=== PATIENT | female | born 1985 | race Caucasian/White ===

== ENCOUNTER 2016-10-27 22:17 | Emergency (ER) | payer BC ==
--- NOTE | 2016-10-27 23:23 | ED CLINICAL REPORT ---
Clinical Report - Physicians/Mid Levels [facility] [address] [place] [address] 10/27/2016 22:21 Patient: TENZIN MILLER Time Seen: 22:32. Arrived- By private vehicle. Historian- patient. HISTORY OF PRESENT ILLNESS The patient sustained a burn to the left upper extremity - left hand. Chief Complaint: BURN. The injury occurred just prior to arrival. The injury was due to hot oil. It occurred at home. The patient denies pain. REVIEW OF SYSTEMS No chills, fever, sweats, chest pain or cough. No difficulty breathing, pedal edema, palpitations, abdominal pain or constipation. No diarrhea, nausea, vomiting or urinary problems. All systems otherwise negative, except as recorded above. SOCIAL HISTORY Current every day light tobacco smoker (cigarette)- less than 1/2 a pack per day. Occasional alcohol use. No drug use. FAMILY HISTORY No significant family medical history. ADDITIONAL NOTES The nursing notes have been reviewed. PHYSICAL EXAM Vital Signs: 10/27/2016 22:29 BP: 179/102. HR: 110. RR: 16. O2 saturation: 100%. Temp: 98.4 F. Pain level now: 0/10. Have been reviewed. Appearance: Alert. No acute distress. Head: Head atraumatic. Eyes: Pupils equal, round and reactive to light. ENT: Nares normal. Pharynx normal. Neck: Trachea midline. Painless ROM. CVS: Heart sounds normal. Respiratory: No respiratory distress. Breath sounds normal. Abdomen: No visible injury. Back: ROM normal. Skin: Left dorsum: small 1st degree burn (multiple in a splash pattern). PROGRESS AND PROCEDURES Course of Care: Patient is stable. Patient/family counseled. Disposition: Discharged. Condition: stable. CLINICAL IMPRESSION Multiple thermal martinez to the dorsum of the left hand. First degree burn. INSTRUCTIONS Protect area of burn and keep clean. You may wash wounds briefly, then dry. Apply neosporin twice daily. Warnings: GENERAL WARNINGS: Return or contact your physician immediately if your condition worsens or changes unexpectedly, if not improving as expected, or if other problems arise. Understanding of the discharge instructions verbalized by patient. (Electronically signed by Devonte Curiel MD 10/28/2016 1:10)
--- NOTE | 2016-10-27 23:23 | ED NURSING NOTES ---
Clinical Report - Nurses [facility] [place] [place] [address] 10/27/2016 22:21 Patient: TENZIN MILLER TRIAGE Triage time 22:29. Acuity: LEVEL 4. Chief Complaint: BURN TO LEFT HAND and LEFT SECOND FINGER. Alert. No acute distress. --22:33 Lorene Griggs R.N. 22:29 10/27/16. BP: 179/102. HR: 110. RR: 16. O2 saturation: 100%. Temp: 98.4 F (oral). Pain level now: 0/10. --22:33 Lorene Griggs R.N. Weight: 94.3 kg stated. Height/Length: 70 inches Per Patient. BMI: 29.8. --22:32 Lorene Griggs R.N. Medications Losartan Potassium Oral 50 mg, daily. --22:30 Lorene Griggs R.N. Propranolol HCl Oral 20 mg, 2x a day. --22:31 Lorene Griggs R.N. Adderall Oral (Tablet 30 mg) 1 tablet, daily. --22:31 Lorene Griggs R.N. Tramadol HCL Oral (Tablet 50 mg) 1 tablet, as needed, hip pain. --22:31 Lorene Griggs R.N. Allergies No Known Drug Allergy. --22:31 Lorene Griggs R.N. History Arrived by private vehicle. Historian: patient. Primary physician (Dylan Hopkins). Location of injuries: left hand. This occurred today (at about 1900). Occurred at home. Treatment JD EDWARDS DEVELOPER: None. PAST MEDICAL HX: Tetanus status: up-to-date. Immunizations: up-to-date. Last normal menstrual period unknown. Uses an intrauterine device. SOCIAL HX: Light tobacco smoker (cigarette)- less than 1/2 a pack per day. Occasional alcohol use. No drug use. NUTRITIONAL RISK ASSESSMENT: The nutritional risk assessment revealed no deficiencies. FUNCTIONAL ASSESSMENT: Functional assessment: no impairments noted. --22:33 Lorene Griggs R.N. ( pt burned hand with hot oil. states left index finger is numb.). --22:35 Lorene Griggs R.N. PROBLEMS: Chronic pain. Hypertension. --22:32 Lorene Griggs R.N. ADDITIONAL SURGERIES: no known surgeries. Interventions ID band on patient. To treatment room. --22:33 Lorene Griggs R.N. PHYSICAL ASSESSMENT Ambulatory to room. GENERAL / NEURO / PSYCH: Alert. Oriented X 4. Appears in no acute distress. HEENT: Voice within normal limits. RESPIRATORY: Respirations not labored. CVS: Capillary refill less than 2 seconds. EXTREMITIES: Left hand: 1st degree superficial burn. SKIN: Skin is warm and dry. --22:34 Lorene Griggs R.N. NURSING PROGRESS NOTES Two patient identifiers checked. Call light placed in reach. Side rails up x 1. Bed placed in lowest position. Brakes of bed on. --22:34 Lorene Griggs R.N. Patient ready for evaluation- chart flagged. --22:34 Lorene Griggs R.N. DISPOSITION / DISCHARGE Condition at departure: unchanged and stable. No learning barriers present. Discharge instructions provided and reviewed with the patient. Patient verbalized understanding. Written instructions provided in German. The patient was discharged home and accompanied by seed cleaning machine operator. She left the Emergency Department ambulatory and via private vehicle. Personal Lines Account Executive driving. --23:30 Lorene Griggs R.N. 23:29 10/27/16. BP: 155/89. HR: 100. RR: 16. O2 saturation: 100% on room air. Temp: deferred. Pain level now: 0/10. --23:30 Lorene Griggs R.N. Locked/Released at 10/27/2016 23:30 by Lorene Griggs R.N.
--- NOTE | 2016-10-27 23:23 | ED NURSING NOTES ---
Clinical Report - Nurses [facility] [place] [address] [place] [address] 10/27/2016 22:21 Patient: TENZIN MILLER TRIAGE Triage time 22:29. Acuity: LEVEL 4. Chief Complaint: BURN TO LEFT HAND and LEFT SECOND FINGER. Alert. No acute distress. --22:33 Lorene Griggs R.N. 22:29 10/27/16. BP: 179/102. HR: 110. RR: 16. O2 saturation: 100%. Temp: 98.4 F (oral). Pain level now: 0/10. --22:33 Lorene Griggs R.N. Weight: 94.3 kg stated. Height/Length: 70 inches Per Patient. BMI: 29.8. --22:32 Lorene Griggs R.N. Medications Losartan Potassium Oral 50 mg, daily. --22:30 Lorene Griggs R.N. Propranolol HCl Oral 20 mg, 2x a day. --22:31 Lorene Griggs R.N. Adderall Oral (Tablet 30 mg) 1 tablet, daily. --22:31 Lorene Griggs R.N. Tramadol HCL Oral (Tablet 50 mg) 1 tablet, as needed, hip pain. --22:31 Lorene Griggs R.N. Allergies No Known Drug Allergy. --22:31 Lorene Griggs R.N. History Arrived by private vehicle. Historian: patient. Primary physician (Dylan Hopkins). Location of injuries: left hand. This occurred today (at about 1900). Occurred at home. Treatment SCOOPER: None. PAST MEDICAL HX: Tetanus status: up-to-date. Immunizations: up-to-date. Last normal menstrual period unknown. Uses an intrauterine device. SOCIAL HX: Light tobacco smoker (cigarette)- less than 1/2 a pack per day. Occasional alcohol use. No drug use. NUTRITIONAL RISK ASSESSMENT: The nutritional risk assessment revealed no deficiencies. FUNCTIONAL ASSESSMENT: Functional assessment: no impairments noted. --22:33 Lorene Griggs R.N. ( pt burned hand with hot oil. states left index finger is numb.). --22:35 Lorene Griggs R.N. PROBLEMS: Chronic pain. Hypertension. --22:32 Lorene Griggs R.N. ADDITIONAL SURGERIES: no known surgeries. Interventions ID band on patient. To treatment room. --22:33 Lorene Griggs R.N. PHYSICAL ASSESSMENT Ambulatory to room. GENERAL / NEURO / PSYCH: Alert. Oriented X 4. Appears in no acute distress. HEENT: Voice within normal limits. RESPIRATORY: Respirations not labored. CVS: Capillary refill less than 2 seconds. EXTREMITIES: Left hand: 1st degree superficial burn. SKIN: Skin is warm and dry. --22:34 Lorene Griggs R.N. NURSING PROGRESS NOTES Two patient identifiers checked. Call light placed in reach. Side rails up x 1. Bed placed in lowest position. Brakes of bed on. --22:34 Lorene Griggs R.N. Patient ready for evaluation- chart flagged. --22:34 Lorene Griggs R.N. DISPOSITION / DISCHARGE Condition at departure: unchanged and stable. No learning barriers present. Discharge instructions provided and reviewed with the patient. Patient verbalized understanding. Written instructions provided in Estonian. The patient was discharged home and accompanied by reclaimer. She left the Emergency Department ambulatory and via private vehicle. Veterinary Microbiologist driving. --23:30 Lorene Griggs R.N. 23:29 10/27/16. BP: 155/89. HR: 100. RR: 16. O2 saturation: 100% on room air. Temp: deferred. Pain level now: 0/10. --23:30 Lorene Griggs R.N. Locked/Released at 10/27/2016 23:30 by Lorene Griggs R.N.
--- NOTE | 2016-10-27 23:23 | ED CLINICAL REPORT ---
Clinical Report - Physicians/Mid Levels [facility] [address] [place] [address] 10/27/2016 22:21 Patient: TENZIN MILLER Time Seen: 22:32. Arrived- By private vehicle. Historian- patient. HISTORY OF PRESENT ILLNESS The patient sustained a burn to the left upper extremity - left hand. Chief Complaint: BURN. The injury occurred just prior to arrival. The injury was due to hot oil. It occurred at home. The patient denies pain. REVIEW OF SYSTEMS No chills, fever, sweats, chest pain or cough. No difficulty breathing, pedal edema, palpitations, abdominal pain or constipation. No diarrhea, nausea, vomiting or urinary problems. All systems otherwise negative, except as recorded above. SOCIAL HISTORY Current every day light tobacco smoker (cigarette)- less than 1/2 a pack per day. Occasional alcohol use. No drug use. FAMILY HISTORY No significant family medical history. ADDITIONAL NOTES The nursing notes have been reviewed. PHYSICAL EXAM Vital Signs: 10/27/2016 22:29 BP: 179/102. HR: 110. RR: 16. O2 saturation: 100%. Temp: 98.4 F. Pain level now: 0/10. Have been reviewed. Appearance: Alert. No acute distress. Head: Head atraumatic. Eyes: Pupils equal, round and reactive to light. ENT: Nares normal. Pharynx normal. Neck: Trachea midline. Painless ROM. CVS: Heart sounds normal. Respiratory: No respiratory distress. Breath sounds normal. Abdomen: No visible injury. Back: ROM normal. Skin: Left dorsum: small 1st degree burn (multiple in a splash pattern). PROGRESS AND PROCEDURES Course of Care: Patient is stable. Patient/family counseled. Disposition: Discharged. Condition: stable. CLINICAL IMPRESSION Multiple thermal martinez to the dorsum of the left hand. First degree burn. INSTRUCTIONS Protect area of burn and keep clean. You may wash wounds briefly, then dry. Apply neosporin twice daily. Warnings: GENERAL WARNINGS: Return or contact your physician immediately if your condition worsens or changes unexpectedly, if not improving as expected, or if other problems arise. Understanding of the discharge instructions verbalized by patient. (Electronically signed by Devonte Curiel MD 10/28/2016 1:10)
--- NOTE | 2016-10-28 01:10 | ED MAR SUMMARY ---
..... Medication Administration Record [facility] [address] [place], [place] [id number] Patient: TENZIN MILLER Visit ID: [id number] 31y, F Weight: 94.3 kg Height/Length: 70 in BMI: 29.8 ALLERGIES: No Known Drug Allergy
--- NOTE | 2016-10-28 01:10 | ED DISCHARGE INSTRUCTIONS ---
Patient: TENZIN MILLER General Instructions [facility] VisitID: [id number] [place] [address] 31y, F Registration Date/Time: 10/27/2016 Multiple thermal martinez to the dorsum of the left hand. First degree burn. INSTRUCTIONS Protect area of burn and keep clean. You may wash wounds briefly, then dry. Apply neosporin twice daily. Warnings: GENERAL WARNINGS: Return or contact your physician immediately if your condition worsens or changes unexpectedly, if not improving as expected, or if other problems arise. Understanding of the discharge instructions verbalized by patient. ADDITIONAL INFORMATION Martinez [1', 2', 3'] A burn occurs when skin is exposed to excessive heat, sun, or harsh chemicals. A first degree burn causes redness only, like a sunburn, and heals in a few days. A second degree burn is deeper and causes a blister to form. This may take up to two weeks to heal. A third degree burn damages all layers of the skin and is very serious. It may take a month or more to heal. Home Care On the first day, you may apply a cool compress (small towel soaked in cool water) to relieve severe pain. If a bandage was applied, change it once a day, unless told otherwise. If the bandage sticks, soak it off under warm running water. Before changing a bandage, wash your hands. Then, wash the area with soap and water to remove any cream, ointment, ooze or scab. You may do this in a sink, under a tub faucet or in the shower. Rinse off the soap and pat dry with a clean towel. Look for signs of infection listed below. Reapply any prescribed cream/ointment to prevent infection and keep the bandage from sticking. Cover the burn with a non-stick gauze. Then wrap it with the bandage material. If the bandage becomes wet or soiled, change it as soon as possible. Use acetaminophen (Tylenol) or ibuprofen (Motrin, Advil) to control pain, unless another pain medicine was prescribed. [NOTE: If you have chronic liver or kidney disease or ever had a stomach ulcer or GI bleeding, talk with your doctor before using these medications.] Follow Up with your doctor or as advised by our staff. Most martinez heal without infection. Occasionally, an infection may occur despite proper treatment. Therefore, check the burn daily for the signs of infection listed below. Get Prompt Medical Attention if any of the following signs of infection occur: Increasing pain in the wound Increasing redness, swelling or pus coming from the wound Red streaks in your skin coming from the burn Fever of 100.4 F (38 C) or higher, or as directed by your healthcare provider You have been given the following additional information: Burn, Thermal, (1'2'3') W/ Dressing (Electronically signed by Devonet Curiel MD 10/28/2016 1:10)
--- NOTE | 2016-10-28 01:10 | ED MAR SUMMARY ---
..... Medication Administration Record [facility] [address] [place] [place], [place] [id number] Patient: TENZIN MILLER Visit ID: [id number] 31y, F Weight: 94.3 kg Height/Length: 70 in BMI: 29.8 ALLERGIES: No Known Drug Allergy
--- NOTE | 2016-10-28 01:10 | ED MED RECONCILIATION SUMMARY ---
Patient: TENZIN MILLER Medication Reconciliation Report [facility] VisitID: [id number] [address] [place] [address] 31y, F Registration Date/Time: 10/27/2016 Weight: 94.3 kg Height/Length: 70 in. BMI: 29.8 ALLERGIES: No Known Drug Allergy The patient's Home Medications are listed below: THE FOLLOWING MEDICATIONS NEED TO BE RECONCILED: Adderall Oral (30 mg) 1 tablet, daily Losartan Potassium Oral 50 mg, daily Propranolol HCl Oral 20 mg, 2x a day Tramadol HCL Oral (50 mg) 1 tablet, hip pain The source(s) of the original Home Medication information: Not obtained. The following Medications were given to the patient in the Emergency Department: None. The following Medications were prescribed to the patient: None.
--- NOTE | 2016-10-28 01:10 | ED MED RECONCILIATION SUMMARY ---
Patient: TENZIN MILLER Medication Reconciliation Report [facility] VisitID: [id number] [address] [place] [address] 31y, F Registration Date/Time: 10/27/2016 Weight: 94.3 kg Height/Length: 70 in. BMI: 29.8 ALLERGIES: No Known Drug Allergy The patient's Home Medications are listed below: THE FOLLOWING MEDICATIONS NEED TO BE RECONCILED: Adderall Oral (30 mg) 1 tablet, daily Losartan Potassium Oral 50 mg, daily Propranolol HCl Oral 20 mg, 2x a day Tramadol HCL Oral (50 mg) 1 tablet, hip pain The source(s) of the original Home Medication information: Not obtained. The following Medications were given to the patient in the Emergency Department: None. The following Medications were prescribed to the patient: None.
== END 2016-10-27 23:30 | disposition home or self-care (01) ==
LOC: ED SRH 22:17
DX: T23.162A Burn of first degree of back of left hand, initial encounter (principal); X10.2XXA Contact with fats and cooking oils, initial encounter; Y93.89 Activity, other specified; Y92.009 Unspecified place in unspecified non-institutional (private) residence as the place of occurrence of the external cause; Y99.9 Unspecified external cause status; I10 Essential (primary) hypertension; F17.210 Nicotine dependence, cigarettes, uncomplicated; Z79.899 Other long term (current) drug therapy